=== PATIENT | female | born 1975 | race Caucasian/White ===

== ENCOUNTER 2018-05-23 08:08 | Outpatient (RCR) | payer OTHER | END 2018-08-05 15:20 | disposition home or self-care (01) | LOC: WSOH 08:08 | DX: S16.1XXA Strain of muscle, fascia and tendon at neck level, initial encounter (principal); S39.012A Strain of muscle, fascia and tendon of lower back, initial encounter; S00.83XA Contusion of other part of head, initial encounter; W00.0XXA Fall on same level due to ice and snow, initial encounter; Y92.9 Unspecified place or not applicable; Y99.0 Civilian activity done for income or pay; R51 Headache; F17.210 Nicotine dependence, cigarettes, uncomplicated; E66.3 Overweight; Z98.51 Tubal ligation status; Z90.710 Acquired absence of both cervix and uterus ==